=== PATIENT | female | born 1955 ===

== ENCOUNTER 2018-06-26 06:23 | Day surgery (SDC) | payer BC ==
[~2018-06-26 06:23] MED LIST: Buffered Lidocaine 0.9% SYRIN* 5 ML/SYR SYRINGE INTRADERM ONE
[2018-06-26] MEDS ORDERED: ceFAZolin 2 GM PREMIX in ORs 2 GM/50 ML BAG IVPB ONE (06:32)
[2018-06-26] MEDS ORDERED: ROPIVACAINE 5 MG/ML 30 ML BTL (0.5%) ONE (07:22)
[2018-06-26] MEDS ORDERED: Dexamethasone IV* 4 MG/ML 1 ML (4 MG) ONE (07:22)
[2018-06-26] MEDS ORDERED: Lidocaine 1% INJ* 10 MG/ML 30 ML SDV ONE (07:22)
[2018-06-26] MEDS ORDERED: Midazolam* 1 MG/ML 5 ML VIAL (5 MG) ONE (07:31)
[2018-06-26] MEDS ORDERED: fentaNYL* 50 MCG/ML 2 ML VIAL (100 MCG VIAL) ONE (07:31)
[2018-06-26] MEDS ORDERED: Propofol* 10 MG/ML 20 ML BTL IV PUSH ONE (07:39)
[2018-06-26] MEDS ORDERED: Naloxone* 0.4 MG/ML 1 ML VIAL IV PRN (08:25)
[2018-06-26 08:46] VITALS: BP 129/72
--- NOTE | 2018-06-26 09:45 | OP ---
DATE OF OPERATION: 06/26/18 - [facility] DATE OF : 53 SURGEON: Osmel Tai [address] SWEEPER: None. ANESTHESIA: MAC with local. PRE-OP DIAGNOSIS: Painful second left hammertoe. POST-OP DIAGNOSIS: Painful second left hammertoe. OPERATIVE PROCEDURE: Correction of second left hammertoe with PIPJ arthrodesis and K-wire fixation, second toe left foot. PATHOLOGY: Degenerative bone. HEMOSTASIS: Pneumatic ankle tourniquet. ESTIMATED BLOOD LOSS: Less than 5 cc. MATERIAL: A smooth 0.045-inch K-wire. INDICATIONS: The patient with chronic left forefoot pain and deformity with contracture of the second left toe causing pain when walking, wearing shoes. She opts for surgery at this time to decrease the pain and improve her function. DESCRIPTION OF PROCEDURE: The patient was brought to the operating room, placed on the operating room table in supine position. The anesthesia department administered IV sedation and peripheral nerve block was performed about the base of the second digit with a 1:1 mixture of 1% lidocaine plain and 0.5% ropivacaine plain. The left foot was prepped and draped in the usual fashion. The left foot was then exsanguinated with an Esmarch bandage and the pneumatic ankle tourniquet was inflated to 250 mmHg above a well-padded left ankle. Attention was directed to the second left digit where 2 converging semi- elliptical incisions were made over the proximal interphalangeal joint and the resultant skin wedge was resected and sent off the field. Next, a transverse tenotomy and capsulotomy was performed, exposure of the joint. It should be noted that neurovascular structures were identified and gently retracted. The collateral ligaments were incised and the proximal phalangeal head was exposed and resected with the sagittal saw. The base of the middle phalanx was also exposed from ligamentous and capsular attachments and the base was resected with a sagittal saw. Power sid was then used to smooth the rough edges. The surgical site was flushed with copious amounts of normal sterile saline. Next, using a smooth 0.045-inch K-wire, wire was driven to the base of the middle phalanx to the tip of the toe in retrograde back through the proximal phalanx with care being taken to ensure that the tip of the wire did not penetrate into the metatarsophalangeal joint. The positioning and fixation was assessed with the mini C-arm. The proximal phalangeal joint was checked to ensure that it was reapproximated well. Redundant dorsal tendinous structure was resected. The surgical site was flushed again with copious amounts of normal sterile saline. The wire was then cut and capped. The capsular and tendinous structures were reapproximated and secured with 4-0 Vicryl. Subcutaneous tissues were reapproximated with 4-0 Vicryl and skin was reapproximated and secured with 5-0 nylon. 8 mg of dexamethasone phosphate was infiltrated about the surgical site and incision was dressed with Xeroform gauze. In the leg, compressive dressing and splinting was applied with 4x4 gauze, Conrad, and a light Coban wrap. The pneumatic ankle tourniquet was deflated about the left ankle and a prompt hyperemic response was noted about all five digits of the patient's left foot. Having appeared to tolerate the procedure and anesthesia well, the patient was transported via cart from the operating room to Recovery in satisfactory condition with capillary refill less than 3 seconds to all digits of the left foot. [id number]/CPS #: [id number] MTDD
--- NOTE | 2018-07-01 16:40 | RAD ---
CPT II Codes: G9500 INDICATION: Correction of second hammertoe. Fluoroscopic services provided for referring physician. One spot image was obtained. 2 seconds of fluoroscopy time was used. Single spot image demonstrates osteotomy of the distal end of the proximal phalanx as well as the proximal end of the middle phalanx of the second digit with an external pin in place. IMPRESSION: Fluoroscopic services provided for referring physician for internal fixation and osteotomy of second digit.
== END 2018-06-26 09:15 | disposition home or self-care (01) ==
LOC: OREAST 06:23
PROVIDERS: ATTEND Podiatrist Foot Surgery
DX: M20.42 Other hammer toe(s) (acquired), left foot (principal); K21.9 Gastro-esophageal reflux disease without esophagitis; R42 Dizziness and giddiness; J30.2 Other seasonal allergic rhinitis
CPT/HCPCS: 76000; C1776; J0690; J1100; J2250; J2704; J2795; J3010